=== PATIENT | male | born 1990 | race Caucasian/White ===

== ENCOUNTER → 2024-04-23 12:43 | Outpatient (REF) | payer OTHER, SELFPAY | LOC: HWRAD 12:43 | PROVIDERS: ATTENDING PHYSICIAN Physician Assistant | DX: S89.92XA Unspecified injury of left lower leg, initial encounter (principal) | CPT/HCPCS: 73610 ==

== ENCOUNTER → 2025-04-26 14:37 | Outpatient (REF) | payer OTHER, SELFPAY | LOC: HWRAD 14:37 | PROVIDERS: ATTENDING PHYSICIAN Physician Assistant Medical | DX: M54.6 Pain in thoracic spine (principal) | CPT/HCPCS: 72070 ==